=== PATIENT | male | born 1945 | race Caucasian/White ===

== ENCOUNTER 2020-05-09 22:52 | Inpatient (IN) | payer OTHER ==
[~2020-05-09] VITALS: Ht 167.6 cm; Wt 84.6 kg
[2020-05-09 22:56] VITALS: Ht 167.6 cm; Wt 84.6 kg
[2020-05-09 23:48] LABS: BASOPHIL % 0.5 % (0-2); PLATELET COUNT 205 x10^3mcL (130-400); RED CELL DISTRIBUTION WIDTH 13.3 % (11.5-14.5)
[2020-05-10 00:17] LABS: CALCIUM 8.7 mg/dL (8.5-10.1); CARBON DIOXIDE 25.1 mmol/L (21-32); CHLORIDE SERUM 106 mmol/L (98-107); CREATININE SERUM 0.9 mg/dL (0.7-1.3); GLUCOSE SERUM 108 mg/dL (74-106); POTASSIUM SERUM 4.1 mmol/L (3.5-5.1); SODIUM SERUM 138 mmol/L (136-145)
[2020-05-10 00:22] LABS: ALBUMIN 3.6 g/dL (3.4-5.0); ALKALINE PHOSPHATASE 72 U/L (46-116); ALT/SGPT 25 U/L (16-63); AST/SGOT 26 U/L (15-37); BILIRUBIN TOTAL 0.4 mg/dL (0.20-1.00); TOTAL PROTEIN, SERUM 6.7 g/dL (6.4-8.2)
--- NOTE | 2020-05-10 02:11 | NUR ---
ASSUMED CARE WHO ARRIED WITH C/O CHEST PAIN STARTING ON THE LEFT LASTING A COUPLE OF MINUTES THEN BELCHING. ASSISTED ONTO THE MONITOR AND OXYGEN VIA NASL CANNULA AT 2 LITER NC. DENIES CHEST PAIN PRESENTLY OR ABDOMEN PAIN WILL CONTIN UE TO MONITOR
--- NOTE | 2020-05-10 02:14 | NUR ---
KACEY CALLED TO [facility] PATIENT BEING ESCORTED TO 230B WITH RN AND EDT ON RECORDS ASSOCIATE IN [facility]. PATIENT STATES HE HAS NO SOB OR CHEST PAIN PRESENTLY
[2020-05-10 02:39] VITALS: BP 144/76
--- NOTE | 2020-05-10 03:15 | NUR ---
RECEIVED PT AWAKE/ALERT, GCS 15, BREATHING EVEN/UNLABORED AT 2L OXYGEN VIA NC. PT AMBULATED FROM GURNEY TO BED WITH STEADY GAIT, NO SKIN BREAKDOWN NOTED. SINUS STEPHANIE AT TELE, DENIES ANY PAIN/DISCOMFORT. NO C/O N/V/D, ACTIVE BOWEL SOUNDS IN ALL QUADRANTS. BELCHING NOTED, POSITIONED UPRIGHT IN BED FOR COMFORT. JAILGUARDS AT BEDSIDE. CALL LIGHT IS WITHIN REACH,, ENCOURAGED TO CALL FOR ASSISTANCE. WILL CONTINUE TO MONITOR.
[2020-05-10 04:31] VITALS: BP 128/76
[2020-05-10 04:52] LABS: CHOLESTEROL/HDL RATIO 3.8; MAGNESIUM 2.1 mg/dL (1.8-2.4)
--- NOTE | 2020-05-10 06:11 | NUR ---
PT IS AWAKE/ALERT, GCS 15, RESTING COMFORTABLY IN BED. NO DISTRESS NOTED AT 2L OXYGEN VIA NC, SINUS STEPHANIE AT TELE. NO C/O CHEST PAIN/DISCOMFORT. ALL VS WDL. IV IS PATENT AND SKIN IS INTACT, NO OPEN AREA. JAILGUARDS AT BEDSIDE AND CALL LIGHT WITHIN REACH. NO ACUTE EVENT SINCE ARRIVAL AT UNIT, ALL NEEDS WERE MET.
--- NOTE | 2020-05-10 07:05 | NUR ---
RECEIVED BEDSIDE REPORT FROM NIGHT RN. PT AWAKE IN RESTROOM. NO ACUTE DISTRESS. PT ON TELE#[id number]. CIM PT. GUARDS PRESENT IN RROM. PT AMBULATORY. URINAL AT BEDSIDE. IV IN R HAND CDI WITH NO REDNESS OR SWELLING. ALL NEEDS MEET AT THIS TIME. WILL CONTINUE TO MONITOR.
[2020-05-10 07:54] VITALS: BP 112/75
--- NOTE | 2020-05-10 09:00 | NUR ---
PT IN BED RESTING WITH EYES OPEN. NO ACUTE DISTRESS. PT DENIES NEED FOR NC. HOB ELEVATED. BED RAILS UPX2. CIM PT WITH GUARDS AT BEDSIDE. PT [place]. ALL NEEDS MEET AT THIS TIME. CALL LIGHT WITHIN REACH. WILL CONTINUE TO MONITIOR.
[2020-05-10 12:13] VITALS: BP 122/70
--- NOTE | 2020-05-10 13:15 | NUR ---
PT IN BED RESTING. NO ACUTE DISTRESS. CIM GUARD AT BEDSIDE. HOB ELEVATED. BED RAILS UPX2. ALL NEEDS MEET AT THIS TIME. WILL CONTINUE TO MONITOR.
--- NOTE | 2020-05-10 16:15 | NUR ---
PT CO BACK PAIN. COMFORT MEASURES AND REPOSITIONED IN PLACE. WILL CONTINUE TO MONITOR.
[2020-05-10 16:50] VITALS: BP 110/80
--- NOTE | 2020-05-10 19:25 | NUR ---
ENDORSED CARE TO NIGHT RN.
--- NOTE | 2020-05-10 20:05 | NUR ---
PT IN BED AAOX4 DENY CHEST PAIN TELE SB HR 57. HL PATENT , GUARDS AT THE BEDSIDE FOR SAFETY .
[2020-05-10 20:48] VITALS: BP 137/77
--- NOTE | 2020-05-11 01:09 | NUR ---
IN BED WITH EYES CLOSED , TELE SB HR 59 .
[2020-05-11 04:23] VITALS: BP 119/79
--- NOTE | 2020-05-11 06:24 | NUR ---
NO CHANGES OF CONDITION NOTED ,PT DENY CHEST PAAN TELE NSR .
[2020-05-11 07:25] LABS: BASOPHIL % 0.4 % (0-2); PLATELET COUNT 224 x10^3mcL (130-400); RED CELL DISTRIBUTION WIDTH 13.4 % (11.5-14.5)
--- NOTE | 2020-05-11 07:30 | NUR ---
RECEIVED PATIENT IN BED WITH GUARD AT BEDSIDE. SHACKLE NOTED ON LEFT ANKLE. PATIENT IS ALERT AND ORIENTED. HL RT HAND. RESP EVEN AND UNLABORED ON ROOM AIR. NO C/O PAIN OR DISCOMFORT.
[2020-05-11 07:40] LABS: CALCIUM 9.2 mg/dL (8.5-10.1); CARBON DIOXIDE 27.4 mmol/L (21-32); CHLORIDE SERUM 102 mmol/L (98-107); CREATININE SERUM 0.8 mg/dL (0.7-1.3); GLUCOSE SERUM 103 mg/dL (74-106); POTASSIUM SERUM 4.3 mmol/L (3.5-5.1); SODIUM SERUM 139 mmol/L (136-145)
[2020-05-11 08:03] VITALS: BP 127/77
--- NOTE | 2020-05-11 08:45 | NUR ---
DIRECTOR OF MECHANICAL ENGINEERING AT BEDSIDE TO DO ECHOCARDIOGRAM.
[2020-05-11 12:38] VITALS: BP 99/68
--- NOTE | 2020-05-11 12:38 | NUR ---
PATIENT'S PLAN OF CARE WAS DISCUSSED AND REVIEWED WITH [employer]UR[employer] AGENT:LIBERTAD LÓPEZ. I HAVE REVIEWED THE DATA COLLECTION BY [employer]UR[employer] AGENT (NAME):LIBERTAD LÓPEZ ENTERED ON (DATE/TIME):05/11/20. I CONCUR WITH THE DATA AND ANY EXCEPTIONS OR COMMENTS ARE LISTED BELOW:
--- NOTE | 2020-05-11 13:19 | NUR ---
PATIENTHAS BEEN OOB AND AMBULATED TO THE BATHROOM. REMINDED PATIENT SEVERAL TIMES OF THE NEED FOR UA/UDS. URINAL PLACED AT BEDSIDE AND IN BATHROOM. WILL CONTINUE TO MONITOR.
[2020-05-11 14:16] LABS: microscopic required? NO
--- NOTE | 2020-05-11 14:46 | NUR ---
URINE COLLECTED AND SENT TO THE LAB ORDERED. TELE DC'D ORDERED.
[2020-05-11 14:54] LABS: urine erythrocyte NEGATIVE (NEGATIVE)
[2020-05-11 15:05] LABS: AMPHETAMINE QUAL UR NONE DETECTED (See below)
[2020-05-11 16:38] VITALS: BP 115/73
--- NOTE | 2020-05-11 16:52 | NUR ---
PATIENT REMAINS IN BED WITH GUARD AT BEDSIDE. SHACKLE ON LEFT ANKLE. HL PATENT. NO ACUTE DISTRESS NOTED. CONTINUES TO DENY ANY CHEST PAIN AT THIS TIME. NO ACUTE DISTRESS NOTED.
--- NOTE | 2020-05-11 18:22 | NUR ---
NO CHANGE IN PATIENT'S CONDITION NOTED. DENIES ANY PAIN OR DISCOMFORT. HL PATENT. CONDITION APPEARS STABLE.
[2020-05-11 19:18] VITALS: BP 131/79
--- NOTE | 2020-05-11 20:35 | NUR ---
RECIIVED PT IN BED AAOX4 [place] NOTED , PT DENY CHEST PAIN , HL PATENT FLUSHING WELL .
[2020-05-12 05:03] VITALS: BP 117/77
--- NOTE | 2020-05-12 05:47 | NUR ---
IN BED NO ACUTE DISTRESS NOTED, HL PATENT , PT DENY CHEST PAIN .
[2020-05-12 08:57] VITALS: BP 135/82
[2020-05-12 10:19] VITALS: BP 135/82
--- NOTE | 2020-05-12 16:29 | NUR ---
Patient discharge instruction provided to pt home medication diet activity md follow up pt verbalized understanding well no belongs iv help lock removed patient discharged to [facility] with surgeon at [phone]
== END 2020-05-12 16:45 | disposition other institution (70) | DRG 313 ==
LOC: ED 22:52 → DU 05-10 00:52 → MU 05-11 16:43
PROVIDERS: Emergency Medicine; ADMIT Internal Medicine; ATTEND Internal Medicine
DX: R07.89 Other chest pain (principal); I10 Essential (primary) hypertension; Z20.828 Contact with and (suspected) exposure to other viral communicable diseases; E78.5 Hyperlipidemia, unspecified; R00.1 Bradycardia, unspecified; I35.0 Nonrheumatic aortic (valve) stenosis
CPT/HCPCS: G0378; Q0092